=== PATIENT | male | born 1985 | race Caucasian/White ===

== ENCOUNTER 2024-08-27 19:52 | Emergency (ER) | payer MEDICAID ==
[~2024-08-27] VITALS: Ht 165.1 cm; Wt 54.4 kg
[2024-08-27 20:33] VITALS: BP 150/82; TEMP 98; O2SAT 98
[2024-08-27] MEDS ORDERED: KETOROLAC TROMETHAMINE 15 MG/ML VIAL ONE (20:47)
[2024-08-27] MEDS: KETOROLAC TROMETHAMINE 15 MG/ML VIAL IM ONE (20:53)
[2024-08-27] MEDS ORDERED: IBUP-1490 PO (21:23)
== END 2024-08-27 21:43 | disposition home or self-care (01) ==
LOC: ER 19:57
DX: S62.367A Nondisplaced fracture of neck of fifth metacarpal bone, left hand, initial encounter for closed fracture (principal); W22.8XXA Striking against or struck by other objects, initial encounter; Y93.71 Activity, boxing; Y92.89 Other specified places as the place of occurrence of the external cause; Y99.8 Other external cause status
CPT/HCPCS: 29125; 73130; 96372; 99283; J1885